=== PATIENT | male | born 1980 ===

== ENCOUNTER 2016-12-17 21:00 | Emergency (ER) | payer OTHER ==
--- NOTE | 2016-12-17 22:09 | RAD ---
Indication: Left hand injury. 4 views of left hand demonstrates a spiral fracture of the fifth metacarpal. No significant displacement is noted. No other fractures are noted. IMPRESSION: Spiral fracture fifth metacarpal.
--- NOTE | 2016-12-17 22:43 | UC ---
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 HAS PAIN AND SWELLING. - History Of Current Complaint Chief Complaint: UCUpperExtremity Stated Complaint: HAND INJURY Time Seen by Provider: 12/17/16 22:00 Hx Obtained From: Patient Onset/Duration: Sudden Onset, Lasting Hours, Still Present Severity Initially: Moderate Severity Currently: Moderate Pain Intensity: 8 Pain Scale Used: 0-10 Numeric - Allergies/Home Medications Allergies/Adverse Reactions: Allergies Allergy/AdvReac Type Severity Reaction Status Date / Time No Known Allergies Allergy Verified 12/17/16 21:10 Home Medications: Home Medications Atorvastatin* [Lipitor 10 MG*] 10 mg PO 1700 12/17/16 [History Confirmed ] Lisinopril TAB* [Prinivil TAB 5 MG*] 5 mg PO DAILY 12/17/16 [History Confirmed 12/17/16] PMH/Surg Hx/FS Hx/Imm Hx Endocrine History: Dyslipidemia Cardiovascular History: Hypertension - Surgical History Surgical History: None - Family History Known Family History: Positive: Hypertension - Social History Alcohol Use: Weekly Substance Use Type: None Smoking Status (MU): Never Smoked Tobacco Review of Systems Constitutional: Negative Skin: Bruising Respiratory: Negative Cardiovascular: Negative Gastrointestinal: Negative Musculoskeletal: Arthralgia, Decreased ROM, Edema All Other Systems Reviewed And Are Negative: Yes Physical Exam Triage Information Reviewed: Yes Appearance: Well-Appearing, No Pain Distress, Well-Nourished Vital Signs: Initial Vital Signs Temp 97.3 F 12/17/16 21:07 Pulse 76 12/17/16 21:07 Resp 18 12/17/16 21:07 BP 147/100 12/17/16 21:07 Pulse Ox 100 12/17/16 21:07 Vital Signs Reviewed: Yes Eyes: Positive: Conjunctiva Clear ENT: Positive: Hearing grossly normal Neck: Positive: Supple Respiratory: Positive: No respiratory distress, No accessory muscle use Cardiovascular: Positive: Pulses Normal Abdomen Description: Positive: Soft Musculoskeletal: Positive: ROM Limited @ - LEFT HAND, Edema @ - LEFT HAND, Other : - TTP LEFT 4TH AND 5TH METACARPALS Neurological: Positive: Alert Psychological: Positive: Age Appropriate Behavior Skin: Positive: Other - BRUISING DORSUM OF LEFT HAND. Negative: rashes Procedures - Splinting Location: LEFT ARM Hand-Made Type: orthoglass Splint: ulnar Pre-Proc Neuro Vasc Exam: normal Post-Proc Neuro Vasc Exam: normal Diagnostics - Radiology LEFT HAND XRAY Xray Interpretation: Positive (See Comments) - Spiral fracture fifth metacarpal. Radiology Interpretation Completed By: Radiologist Hand/Wrist Course/Dx - Differential Dx/Diagnosis Provider Diagnoses: Spiral fracture left fifth metacarpal - Physician Notifications Discussed Patient Care With: Price Aguilar - AGREE WITH ULNAR GUTTER AND OFFICE FOLLOW-UP IN 1-2 DAYS Time Discussed With Above Provider: 22:00 Discharge - Discharge Plan Condition: Stable Disposition: HOME Prescriptions: Hydrocodone-Acetaminophen [Lorcet 5-325 mg] 1 tab PO QID PRN #15 tab MDD 4 PRN Reason: Pain Patient Education Materials: Hand Fracture (ED) Referrals: Price gAuilar MD [Medical Doctor] - Additional Instructions: YOU HAVE A SPIRAL FRACTURE OF YOUR LEFT FIFTH METACARPAL. KEEP THE SPLINT ON UNTIL SEEN BY ORTHO. CALL DR. AGUILAR'S OFFICE FIRST THING TOMORROW MORNING FOR AN APPT TO BE SEEN TOMORROW OR THE NEXT DAY. I SPOKE WITH DR. SEBAS WINSLOW AND SHE IS AWARE OF YOUR CASE AND EXPECTING YOU TO CALL.
[2016-12-17] MEDS ORDERED: HYDROcodone/ACETAMIN 5-325 MG* 1 TAB PO ONE ×2 (22:45→22:53)
== END 2016-12-17 23:08 | disposition home or self-care (01) ==
LOC: UCEAST 21:00
DX: S62.307A Unspecified fracture of fifth metacarpal bone, left hand, initial encounter for closed fracture (principal); W20.8XXA Other cause of strike by thrown, projected or falling object, initial encounter; Y93.9 Activity, unspecified; Y92.9 Unspecified place or not applicable; Y99.9 Unspecified external cause status; I10 Essential (primary) hypertension; E78.5 Hyperlipidemia, unspecified
CPT/HCPCS: 99212; G0463